=== PATIENT | female | born 1975 | race Caucasian/White ===

== ENCOUNTER 2022-12-31 17:52 | Emergency (ER) | payer OTHER ==
[2022-12-31 18:15] VITALS: BP 115/60; PULSE 78; RESP 16; TEMP 98.1; BMI 27.6
[2022-12-31] MEDS ORDERED: CLINDAMYCIN HCL 300 MG CAPSULE PO ONE (18:26)
[2022-12-31] MEDS ORDERED: CLINDAMYCIN HCL 150 MG CAPSULE (FP) ONE (18:27)
== END 2022-12-31 18:34 | disposition home or self-care (01) ==
LOC: FER 17:52
DX: S62.662B Nondisplaced fracture of distal phalanx of right middle finger, initial encounter for open fracture (principal); L03.011 Cellulitis of right finger; X58.XXXA Exposure to other specified factors, initial encounter; Y92.9 Unspecified place or not applicable
CPT/HCPCS: 99283-25